=== PATIENT | female | born 1955 | race Caucasian/White ===

== ENCOUNTER 2019-01-29 09:56 | Inpatient (IN) | payer BC ==
--- NOTE | 2019-01-23 15:28 | HPE ---
DATE OF ADMISSION: 01/29/2019 CHIEF COMPLAINT: Right knee pain. HISTORY OF PRESENT ILLNESS: This is a pleasant, 63-year-old female with progressively worsening right knee pain and stiffness. She has failed to improve with conservative treatment. She has elected for surgery for her continued symptoms. She has pain with weightbearing activities and activities of daily living. X-rays of her knee are notable for advanced osteoarthritis of the right knee joint. She has consented for a right total knee arthroplasty by Dr. Lang Cardoza. Medical optimization was performed by Dr. Emerson. ALLERGIES: LATEX and OXYCONTIN. CURRENT MEDICATIONS: - Lisinopril 10 mg - Centrum Silver - vitamin D3 50 mcg - vitamin B12 1000 mcg - Viactiv calcium 650 mg - Tylenol 8-hour 650 mg as needed up to three times a day - EpiPen as needed - sodium sulfacetamide face wash PAST MEDICAL HISTORY: Includes high blood pressure. PAST SURGICAL HISTORY: Includes tonsillectomy, partial hysterectomy, right knee arthroscopy, left foot bunion, bladder sling, plantar fasciectomy in the right foot, left eye surgery, left shoulder rotator cuff repair, left knee arthroscopy, right shoulder arthroscopy. 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 FAMILY HISTORY: Noncontributory. REVIEW OF SYSTEMS: This patient denies chest pain, heart palpitations, cough, wheezing, difficulty breathing and shortness of breath. She denies abdominal pain, nausea, vomiting, diarrhea or constipation. She denies recent upper respiratory infection or urinary tract infection symptoms. PHYSICAL EXAMINATION: General: She is well-nourished, well-developed, in no acute distress, alert female patient. She walks with a moderate limp favoring the right lower extremity. She is not using assistive devices. Vital signs: She was 66 inches tall, weighed 205.6 pounds with a temperature of 98.6, blood pressure 131/87, pulse of 72, and respirations of 18. Neck was supple without adenopathy or jugular venous distension. Lungs were clear to auscultation without rales or wheeze. Heart: Regular rate and rhythm. Abdomen: Bowel sounds were present. Extremities: Examination of the knee revealed intact skin. She had decreased range of motion due to pain and stiffness. The limb is neurovascularly intact. LABORATORY DATA: EKG showed sinus rhythm at 62 beats per minute. Chest x-ray showed no acute cardiopulmonary disease findings. CBC was within normal limits. BUN 11, creatinine 0.7. Sodium 140, potassium 4.6. The remaining labs were pending. IMPRESSION: Symptomatic osteoarthritis of the right knee joint. PLAN: Consented for a right total knee arthroplasty with Dr. Lang Cardoza.
[~2019-01-29] VITALS: Ht 167.6 cm; Wt 91.6 kg
[~2019-01-29 09:56] MED LIST: ACET-907 PO; ACETAMINOPHEN 500 MG TAB PO ONE; CHOL100029 PO; CVS2500C PO; LIDOCAINE 1% MDV 20ML VIAL SQ PRN; LISI10TA4 PO; LR 1,000 ML IV SCH; MULTCAP PO; VIAC1CHW PO; [UNRECOGNIZED DRUG - OTHER] EX; ceFAZolin SOD 2 GM in IV 1 EA IV ONE
[2019-01-29] MEDS ORDERED: ONDANSETRON 4MG/2ML VIAL (J2405) As Ordered ONE (12:40)
[2019-01-29] MEDS ORDERED: dexameTHASONE 4 MG/ML 1ML VIAL (J1100) As Ordered ONE (12:40)
[2019-01-29] MEDS ORDERED: LIDOCAINE 2% INJ 100 MG/5 ML SDV (FOR ANES.) As Ordered ONE (12:40)
[2019-01-29] MEDS ORDERED: propofoL 200 MG/20 ML VIAL As Ordered ONE ×2 (12:40→15:04)
[2019-01-29] MEDS ORDERED: MIDAZOLAM INJ 2 MG/2 ML VIAL (J2250) As Ordered ONE ×2 (12:41→13:02)
[2019-01-29] MEDS ORDERED: BUPIVACAINE HCL 0.25% 30 ML VIAL As Ordered ONE ×2 (13:02→13:13)
[2019-01-29] MEDS ORDERED: fentaNYL 100 MCG/2 ML INJECTION (J3010) As Ordered ONE ×2 (13:02→14:48)
[2019-01-29] MEDS ORDERED: TRANEXAMIC ACID 100 MG/ML 10ML VIAL As Ordered ONE (13:12)
[2019-01-29] MEDS ORDERED: BUPIVACAINE LIPOSOME/PF 1.3% 20ML VIAL (13.3MG/ML)(EXPAREL)(C9290 PER1MG) As Ordered ONE (13:13)
[2019-01-29] MEDS ORDERED: EPINEPHrine INJ 1 MG/ML 1ML VIAL As Ordered ONE (13:13)
[2019-01-29] MEDS ORDERED: ceFAZolin 1GM INJ (J0690 PER 500MG) As Ordered ONE (13:13)
[2019-01-29] MEDS ORDERED: propofoL 500 MG/50 ML VIAL As Ordered ONE (15:03)
[2019-01-29] MEDS ORDERED: LABETALOL HCL 100 MG/20 ML VIAL As Ordered ONE (15:08)
[2019-01-29] MEDS ORDERED: ONDANSETRON 4MG/2ML VIAL (J2405) IV PRN (16:15)
[2019-01-29] MEDS ORDERED: LR 1,000 ML IV SCH ×2 (16:15→16:45)
[2019-01-29] MEDS ORDERED: fentaNYL 100 MCG/2 ML INJECTION (J3010) IV PRN (16:15)
[2019-01-29] MEDS ORDERED: METOCLOPRAMIDE INJ 10MG/2ML VIAL (J2765) IV PRN (16:15)
[2019-01-29] MEDS ORDERED: HYDROmorphone HCL 2 MG/ML 1ML VIAL (J1170) IV PRN (16:30)
--- NOTE | 2019-01-29 16:34 | HPEPDOC ---
[facility] Medical History & Physical Date of Admission Jan 29, 2019 Date of Service: Jan 29, 2019 Primary Care Physician: Vargas Lopez Attending Physician: HEIDE TYSON MD History and Physical CHIEF COMPLAINT: S/P R Total Knee Replacement HISTORY OF PRESENT ILLNESS: Patient is a 63-year old, female, past medical history of HTN, who had a R total knee replacement performed on 01/29/[address] Lang Cardoza. Prior to her operation today, patient reports being in her usual state of health. PAST MEDICAL HISTORY: Hypertension, controlled PAST SURGICAL HISTORY: Tonsillectomy Partial Hysterectomy R Knee Arthroscopy Left foot Bunionectomy Right foot Fasciectomy Left Shoulder Rotator Cuff Repair Right Shoulder Rotator Cuff Repair Bladder Sling L Eye Surgery Total R Knee Replacement SOCIAL HISTORY: Marital status: Resides in: [place], with Employment: Works as an juvenile correctional officer Tobacco use: Patient denies any tobacco use history ETOH: Patient reports occasional alcohol use, she denies any recent intoxication Illicit drug use: Patient denies any illicit drug use, including marijuana Other relevant social factors: Patient does utilize corrective lenses FAMILY HISTORY: Father: , 82, [place] Mother: , 97, Melanoma, Ovarian carcinoma dx at 92 ALLERGIES: Latex-rash OxyContin-GI upset Bee-anaphylaxis REVIEW OF SYSTEMS: CONSTITUTIONAL: Patient denies any preceding fevers, chills, night sweats, generalized fatigue or changes in weight HEENT: Denies any headaches, changes in vision, changes in hearing, ringing in the ears, difficulty swallowing or oral aphthous ulcers. CARDIOVASCULAR: Denies any chest pain, palpitations or an appropriate tachycardia. RESPIRATORY: Denies difficulty breathing, no orthopnea or paroxysmal nocturnal dyspnea. Patient is able to lie flat without difficulty. No recent cough or wheeze. No history of ROSA. GASTROINTESTINAL: Denies recent reflux, abdominal pain, constipation or diarrhea. No recent nausea or vomiting GENITOURINARY: Patient denies any difficulty urinating including urinary frequency, hesitancy, urgency SKIN: Denies any recent evolving skin lesions or rashes. MUSCULOSKELETAL: Reports preceding right knee pain requiring [id number] Tylenol. Denies any other joint or muscle pain NEUROLOGICAL: No history of neurologic deficits, TIA, numbness tingling or weakness PSYCHIATRIC: Denies any history of clinically significant depression or anxiety HEMATOLOGIC/LYMPHATIC: Patient denies any history of easy bruising or abnormal bleeding HOME MEDICATIONS: Please see below. PHYSICAL EXAMINATION: VITAL SIGNS: Temperature 97.4 F, pulse 79, respiratory rate 18, blood pressure 137/81, pulse oximetry 96% on room air. GENERAL APPEARANCE: Patient was interviewed and examined in the PACU. Patient was alert and oriented, found to be resting comfortably in her hospital bed. She was able to answer questions appropriately and actively participate in her care. HEENT: Normocephalic, atraumatic, EOMI, good oral hygiene, mucosa pink and moist CARDIOVASCULAR: Regular rate and rhythm, normal S1 and S2 LUNGS: Clear to auscultation bilaterally, no wheezing rale or rhonci ABDOMEN: Soft, nontender, nondistended MUSCULOSKELETAL: R knee covered in post-op bandages. EXTREMITIES: No L lower extremity edema. Bilateral radial pulses and L posterior tibial pulse 2+ NEUROLOGICAL: Alert and oriented to person place and time, no focal neurologic deficits, appropriate and conversant LABORATORY DATA: See below. IMAGING: Right knee x-ray (01/29/19): Status post right total knee replacement ASSESSMENT: Patient is a 63-year-old female, past medical history significant for hypertension, who is status postop day #1 following an uncomplicated right total knee replacement by Dr. Cardoza. Patient tolerated the procedure well without any adverse sequelae. PLAN: #Postop right total knee replacement. Pain control, PT/OT and DVT prophylaxis as per orthopedics #Hypertension Continue patient on home lisinopril 10 mg starting tomorrow DVT Prophylaxis: Per orthopedics CODE STATUS: Full code Vital Signs Vital Signs Date Time Temp Pulse Resp B/P (MAP) Pulse Ox O2 Delivery O2 Flow Rate FiO2 01/29/19 14:00 74 20 173/84 (113) 100 3 01/29/19 10:23 99 Home Medications Scheduled Acetaminophen (Tylenol) 325 Mg Tablet, 975 MG PO TID Calcium Carb/Vitamin D3/Vit K1 (Viactiv 650 mg-12.5 Mcg Chew) 1 Each Tab.chew, 1 EACH PO BID Cyanocobalamin (Vitamin B-12) (Vitamin B12) 2,500 Mcg Tab.chew, Unknown Dose PO DAILY Lisinopril (Lisinopril) 10 Mg Tablet, 10 MG PO DAILY Multivitamin (Multivitamins) 1 Each Capsule, 1 CAP PO DAILY Sulfacetamide Sodium (Sodium Sulfacetamide) 355 Ml Clnsr.gel, 10 % EX DAILY Vitamin D (Vitamin D3) 1,000 Unit Tablet, 2,000 UNITS PO DAILY Allergies Coded Allergies: bee venom protein (honey bee) (Verified Allergy, Severe, anaphylaxis, 01/21/19) latex (Verified Allergy, Intermediate, rash, 01/21/19) oxycodone (Verified Adverse Reaction, Intermediate, vomiting, 01/29/19) A-FIB/CHADSVASC A-FIB History Current/History of A-Fib/PAF?: No GME ATTESTATION GME ATTESTATION My faculty preceptor for this patient encounter was physically present during the encounter and was fully available. All aspects of the patient interview, examination, medical decision making process, and medical care plan development were reviewed and approved by the faculty preceptor. The faculty preceptor is aware and concurs with the plan as stated in the body of this note and will attest to such by his/her cosignature. ATTENDING NOTE I, Heide Tyson, have independently examined this patient and performed my own physical exam, as well as reviewed the documentation and edited where necessary. I have discussed in detail with the resident / student the findings and plan of treatment as documented by the resident / student and edited their note. I agree with their findings and treatment plan and have edited their documentation. I will continue to follow the patient during this hospital stay. AUGUST RODRIGUEZ DO Jan 29, 2019 16:34 HEIDE TYSON MD Jan 29, 2019 17:34
--- NOTE | 2019-01-29 16:39 | REP ---
Right knee AP and lateral views, post operative study: There is a total knee arthroplasty. The components are tightly applied and in satisfactory positions alignment. There is intra-articular air as a postsurgical change. There are skin alicia. Electronically Signed by Mark Coreas MD 01/29/2019 04:31 P
[2019-01-29] MEDS ORDERED: FLEET ENEMA PR PRN (16:45)
[2019-01-29] MEDS ORDERED: ACETAMINOPHEN TAB 650MG DOSE (2X325MG) PO PRN (16:45)
[2019-01-29] MEDS ORDERED: NORCO, ANEXSIA 5/325MG TABLET (HYDROcodone/ACETAMINOPHEN) As Ordered ONE (16:54)
[2019-01-29] MEDS ORDERED: NORCO, ANEXSIA 5/325MG TABLET (HYDROcodone/ACETAMINOPHEN) PO PRN (17:00)
[2019-01-29 17:30] VITALS: BP 150/70
[2019-01-29 18:00] VITALS: BP 157/89
[2019-01-29 19:00] VITALS: BP 152/85
[2019-01-29] MEDS: ceFAZolin SOD 2 GM in IV 1 EA IV SCH (19:58)
[2019-01-29 20:00] VITALS: BP 155/88
[2019-01-29] MEDS: HYDROmorphone HCL 2 MG/ML 1ML VIAL (J1170) IV PRN (20:06)
[2019-01-29 21:00] VITALS: BP 150/87
[2019-01-29 22:00] VITALS: BP 148/86
[2019-01-30 02:00] VITALS: BP 140/84
[2019-01-30] MEDS: ceFAZolin SOD 2 GM in IV 1 EA IV SCH ×2 (03:03→13:33)
[2019-01-30] MEDS: HYDROmorphone HCL 2 MG/ML 1ML VIAL (J1170) IV PRN (03:03)
[2019-01-30 06:00] VITALS: BP 138/76
[2019-01-30 06:00] LABS: HEMATOCRIT 32.9 % (36.0-47.0); HEMOGLOBIN 11.1 g/dl (12.0-15.5); MEAN CORPUSCULAR HEMOGLOBIN 32.1 pg (27.0-33.0); MEAN CORPUSCULAR HGB CONC 33.7 g/dl (32.0-36.5); MEAN CORPUSCULAR VOLUME 95.1 fl (80.0-96.0); PLATELET COUNT, AUTOMATED 192 10^3/uL (150-450); RED BLOOD COUNT 3.46 10^6/uL (4.00-5.40)
[2019-01-30 06:21] LABS: INR 1.21
[2019-01-30 06:24] LABS: BLOOD UREA NITROGEN 14 MG/DL (7-18); CALCIUM LEVEL 8.4 MG/DL (8.8-10.2); CARBON DIOXIDE LEVEL 28 MEQ/L (21-32); CHLORIDE LEVEL 106 MEQ/L (98-107); CREATININE FOR GFR 0.67 MG/DL (0.55-1.30); GLOMERULAR FILTRATION RATE > 60.0 (>45); GLUCOSE, FASTING 152 MG/DL (70-100); SODIUM LEVEL 139 MEQ/L (136-145)
[2019-01-30] MEDS ORDERED: HYDR-3713 PO (06:56)
[2019-01-30] MEDS ORDERED: XARE10TA PO ×2 (06:56→07:48)
[2019-01-30] MEDS: MOM 30ML SUSPENSION UDC PO SCH (08:30)
[2019-01-30] MEDS: MIRALAX *UNIT DOSE* 17GM PACKET PO SCH (08:30)
[2019-01-30] MEDS: lisinopriL 10 MG TAB PO SCH (08:34)
[2019-01-30] MEDS: SENOKOT S TAB PO SCH ×2 (08:34→20:47)
[2019-01-30] MEDS: VITAMIN D 1,000 INTERNATIONAL UNITS TABLET PO SCH (08:34)
[2019-01-30] MEDS: RIVAROXABAN 10 MG TAB (XARELTO) PO SCH (08:34)
[2019-01-30] MEDS: NORCO, ANEXSIA 5/325MG TABLET (HYDROcodone/ACETAMINOPHEN) PO PRN ×3 (08:35→20:47)
--- NOTE | 2019-01-30 09:45 | IPNPDOC ---
Date Seen The patient was seen on 01/30/19. Progress Note SUBJECTIVE: Patient was interviewed and examined in her hospital this morning. Patient was found to be sitting upright in bed he, eating breakfast in no acute distress. Patient presented in good spirits. She states that her pain is being adequately controlled per orthopedics. She has been up to the bathroom though she denies having a bowel movement since surgery. She has continued to use incentive spirometry to prevent postoperative atelectasis. She denies headache, changes in vision, chest pain, shortness of breath, nausea, vomiting, abdominal pain. Patient states that she is unable to be discharged home today and she will not have anyone at home to help her perform ADLs. Patient in agreement with discharge tomorrow morning. OBJECTIVE PHYSICAL EXAMINATION: VITAL SIGNS: Please see below. GENERAL APPEARANCE: Patient was interviewed and examined in the inner hospital room. Patient was alert and oriented to person place and time. She was able to answer questions appropriately and actively participate in her care. HEENT: Normocephalic, atraumatic, EOMI, good oral hygiene, mucosa pink and moist CARDIOVASCULAR: Regular rate and rhythm, normal S1 and S2 LUNGS: Clear to auscultation bilaterally, no wheezing rale or rhonci ABDOMEN: Soft, nontender, nondistended MUSCULOSKELETAL: R knee covered in post-op bandages. EXTREMITIES: No L lower extremity edema. Bilateral radial pulses and L posterior tibial pulse 2+ NEUROLOGICAL: Alert and oriented to person place and time, no focal neurologic deficits, appropriate and conversant LABORATORY DATA Please see below. IMAGING STUDIES Knee x-ray (01/30/19): Postoperative study, total knee arthroplasty. Components are tightly applied satisfactory position and alignment. Intra-articular air has a postsurgical change. There are skin alicia. ASSESSMENT: Patient is a 63-year-old female, past medical history significant for hypertension, who is status postop day #1 following an uncomplicated right total knee replacement by Dr. Cardoza. Patient tolerated the procedure well without any adverse sequelae. PROBLEMS: #Postop right total knee replacement. Pain control, PT/OT and DVT prophylaxis as per orthopedics Patient states that her pain is currently adequately controlled She has been able to sit in her chair and ambulate to the bathroom. #Hypertension Overnight patient's blood pressure has remained [id number]. Patient to restart her lisinopril 10 mg morning. Continue to monitor patient's blood pressure measurements the hospital. DVT Prophylaxis: Per orthopedics CODE STATUS: Full code DISPOSITION: Anticipate discharge tomorrow am. DVT Prophylaxis: TEDS and Sequentials per Orthopedics VS, I&O, 24H, Fishbone Vital Signs/I&O Vital Signs Date Time Temp Pulse Resp B/P (MAP) Pulse Ox O2 Delivery O2 Flow Rate FiO2 01/30/19 08:35 10 01/30/19 08:34 138/76 01/30/19 06:00 98.2 74 98 01/29/19 14:00 3 I&O- Last 24 Hours up to 6 AM 01/30/19 05:59 Intake Total 1970 ml Output Total 1220 ml Balance 750 ml Laboratory Data 24H LABS Laboratory Tests 2 01/30/19 05:40: Nucleated Red Blood Cells % (auto) 0.0, Prothrombin Time 15.0H, Prothromb Time International Ratio 1.21, Anion Gap 5L, Glomerular Filtration Rate > 60.0, Blood Urea Nitrogen 14, Creatinine 0.67, Sodium Level 139, Potassium Level 4.0, Chloride Level 106, Carbon Dioxide Level 28, Calcium Level 8.4L CBC/BMP Laboratory Tests 01/30/19 05:40 Red Blood Count 3.46 L, Mean Corpuscular Volume 95.1, Mean Corpuscular Hemoglobin 32.1, Mean Corpuscular Hemoglobin Concent 33.7, Red Cell Distribution Width 12.4, Calcium Level 8.4 L GME ATTESTATION GME ATTESTATION My faculty preceptor for this patient encounter was physically present during the encounter and was fully available. All aspects of the patient interview, examination, medical decision making process, and medical care plan development were reviewed and approved by the faculty preceptor. The faculty preceptor is aware and concurs with the plan as stated in the body of this note and will attest to such by his/her cosignature. ATTENDING NOTE I, Sharla Posada, have independently examined this patient and performed my own physical exam, as well as reviewed the documentation and edited where necessary. I have discussed in detail with the resident / student the findings and plan of treatment as documented by the resident / student and edited their note. I agree with their findings and treatment plan and have edited their documentation. I will continue to follow the patient during this hospital stay. AUGUST RODRIGUEZ DO Jan 30, 2019 09:45 SHARLA POSADA MD Jan 30, 2019 14:16
--- NOTE | 2019-01-30 11:34 | RO ---
DATE OF PROCEDURE: 01/29/2019 PREOPERATIVE DIAGNOSIS: Right knee degenerative arthritis. POSTOPERATIVE DIAGNOSIS: Right knee degenerative arthritis. PROCEDURE: Right total knee arthroplasty using a size 5 cruciate retaining femoral component and a size 4 tibial try with a 6 mm rotating platform polyethylene insert and a 32 mm polyethylene button. All of the components were cemented. The prosthesis was an ATTUNE knee made Chad-Chad/DePuy. SURGEON: Jillian Cardoza MD SWITCH TECHNICIAN: Mr. Luiz Lui PA-C ANESTHESIA: Spinal with a right femoral nerve block. COMPLICATIONS: None. SPECIMENS: Joint surface. ESTIMATED BLOOD LOSS: 20 mL. COMPLICATIONS: None. PROCEDURE: Antibiotics were given intravenously preoperatively. A successful right femoral nerve block, then spinal anesthetic was induced. The tourniquet was placed on the right upper thigh and not inflated. The right lower extremity was then carefully prepped and draped in the usual sterile fashion, elevated, and after appropriate time out, the tourniquet was inflated. A longitudinal incision was made for a medial parapatellar approach to the knee. Bovie cautery was used to coagulate the crossing vessels. Subperiosteal dissection around the proximal, medial and lateral tibial plateau was performed. The patella was everted, the knee flexed, anterior cruciate ligament (ACL) debrided. Drill placed down the center of femoral canal, followed by the intramedullary bulmaro and distal femoral cutting jig set at 9 mm resection level at 5 degree valgus cut at for a right knee. Block was pinned into position. The distal femoral cut was then performed. AP sizing jig measured for a size 5, 3 degrees of external rotation were dialed in, the pins placed, and the four-in-one block applied, anterior, posterior and chamfer cuts performed. The sulcus jig was then placed and the sulcus performed. We then exposed the proximal tibia, used the extramedullary cutting jig to estimate being parallel to the mechanical axis of the tibia, the block was pinned in position, referencing off the medial tibial condyle at 4 mm resection level. The block was pinned in position, secondary check of the extramedullary bulmaro confirmed we appeared to be parallel to the mechanical axis. Proximal tibial osteotomy was then performed. The lamina services tech was then placed medially and we performed a completion lateral meniscectomy and debridement of the posterolateral osteophytes. We then placed the lamina services tech laterally and performed a completion medial meniscectomy and debridement of the posteromedial osteophytes. Spacer block, 6 mm, fit the best with symmetry between the flexion and extension gaps with good stability to varus valgus stress testing. We then exposed the proximal tibia, sized for a 4 tray which was pinned into position followed by the reamer and broach, trial placed, then the femur was applied. Then we brought the knee into extension and everted the patella, performed patellar osteotomy, drilled the lug holes for a 32 button. Trial was placed and patellofemoral tracking was anatomic. We drilled the lug holes for the femur, then removed all the trial components, and placed Exparel in the subperiosteal tissues around the distal femur and the proximal tibia. Then I copiously pulsatile lavage irrigated out the entire knee joint in preparation for cementing as my staff physical therapy assistant Mr. Luiz Lui mixed the cement on the back table. He was also critical to the success of this difficult surgery by helping with appropriate soft tissue retraction, helped to manipulate the knee as needed, helped to mix the cement, helped to close the wound and helped to prepare the patient, amongst many other tasks to allow me to perform the operation safely and efficiently. We then cemented the tibial tray and removed excess cement, placed the polyethylene, cemented the femoral component and removed excess cement, then brought the knee out in extension, cemented the patellar button, held it with a clamp with the knee fully extended until the cement hardened. As we were awaiting this, we copiously pulsatile lavage irrigated out the knee joint, and then placed tranexamic acid in the knee. We then closed the apex of the arthrotomy with two #1 PDS sutures, the medial parapatellar area was closed with #1 PDS suture, then we closed the capsule, and double arm #1 running STRATAFIX. The tourniquet was then released, then irrigated again and closed the deep subdermal tissues with interrupted #2-0 PDS sutures. Skin was closed with alicia, covered by Optifoam and dry sterile bulky dressing. Then the patient was transferred to the recovery room in stable condition. There were no intraoperative complications.
[2019-01-30 16:10] VITALS: BP 139/75
[2019-01-30 22:00] VITALS: BP 150/94
[2019-01-31] MEDS: NORCO, ANEXSIA 5/325MG TABLET (HYDROcodone/ACETAMINOPHEN) PO PRN ×3 (01:05→09:14)
[2019-01-31 06:00] VITALS: BP 160/91
[2019-01-31 06:35] LABS: HEMATOCRIT 32.1 % (36.0-47.0); HEMOGLOBIN 10.4 g/dl (12.0-15.5); MEAN CORPUSCULAR HGB CONC 32.4 g/dl (32.0-36.5); MEAN CORPUSCULAR VOLUME 95.5 fl (80.0-96.0); PLATELET COUNT, AUTOMATED 172 10^3/uL (150-450); RED BLOOD COUNT 3.36 10^6/uL (4.00-5.40); WHITE BLOOD COUNT 8.8 10^3/uL (4.0-10.0)
[2019-01-31 06:54] LABS: BLOOD UREA NITROGEN 12 MG/DL (7-18); CALCIUM LEVEL 8.4 MG/DL (8.8-10.2); CARBON DIOXIDE LEVEL 29 MEQ/L (21-32); CHLORIDE LEVEL 107 MEQ/L (98-107); CREATININE FOR GFR 0.64 MG/DL (0.55-1.30); GLOMERULAR FILTRATION RATE > 60.0 (>45); GLUCOSE, FASTING 143 MG/DL (70-100); POTASSIUM SERUM 3.8 MEQ/L (3.5-5.1); SODIUM LEVEL 141 MEQ/L (136-145)
[2019-01-31 08:54] VITALS: BP 160/91
[2019-01-31] MEDS: SENOKOT S TAB PO SCH (08:54)
[2019-01-31] MEDS: lisinopriL 10 MG TAB PO SCH (08:54)
[2019-01-31] MEDS: MIRALAX *UNIT DOSE* 17GM PACKET PO SCH (08:54)
[2019-01-31] MEDS: MOM 30ML SUSPENSION UDC PO SCH (08:54)
[2019-01-31] MEDS: RIVAROXABAN 10 MG TAB (XARELTO) PO SCH (08:54)
[2019-01-31] MEDS: VITAMIN D 1,000 INTERNATIONAL UNITS TABLET PO SCH (08:54)
--- NOTE | 2019-01-31 12:12 | IPNPDOC ---
Date Seen The patient was seen on 01/31/19. Progress Note SUBJECTIVE: Patient was seen and examined this morning. She currently has no complaints. There have been no adverse events reported overnight. Patient is to be discharged today OBJECTIVE PHYSICAL EXAMINATION: VITAL SIGNS: Please see below. GENERAL: Patient is awake, alert and oriented. does not appear to be in acute distress. Lying comfortably in bed HEENT: Atraumatic, normocephalic. Eyes are nonicteric. Trachea is midline. Mucous membranes are pink and moist. No conjunctival pallor CARDIOVASCULAR:. Normal S1, S2, regular rate and rhythm. No clicks, rubs or murmurs. Capillary refills less than 2 seconds. RESPIRATORY:. Clear vesicular breath sounds bilaterally with good respiratory effort. There is no wheezes, rhonchi or rales. ABDOMINAL: Soft, nondistended, nontender to palpation in all 4 quadrants. No rebound tenderness or guarding. No hernias or bruising EXTREMITIES: No edema, 2+ posterior tibial pulses 2+ radial pulses bilaterally. No clubbing or cyanosis of the nailbeds NEUROLOGICAL:. No focal neurological deficits PSYCHOLOGICAL: Mood and affect appear appropriate LABORATORY DATA, IMAGING STUDIES, MICROBIOLOGY: Please see below. DVT prophylaxis ordered?: Xarelto 10 mg ASSESSMENT AND PLAN: Patient is 62-year-old female with past medical history of hypertension and is status post day 1 following uncomplicated right total knee replacement. Patient has tolerated procedure well and is currently pending discharge PROBLEMS: 1. Postop day 2, total right knee replacement -Pain control and DVT prophylaxis, being managed by orthopedic surgery -Patient has worked with physical therapy and occupational therapy -Patient is planned to be discharged today 2., Hypertension -Patient did well controlled on her home medications. DISPOSITION: Patient is done well overnight is currently pending discharge per orthopedic surgery. She is to continue all of her current home medications upon discharge. Ongoing pain management and DVT prophylaxis at discharge is under management by orthopedic surgery. VS, I&O, 24H, Fishbone Vital Signs/I&O Vital Signs Date Time Temp Pulse Resp B/P (MAP) Pulse Ox O2 Delivery O2 Flow Rate FiO2 01/31/19 09:59 17 01/31/19 08:54 160/91 01/31/19 06:00 98.4 75 95 01/29/19 14:00 3 I&O- Last 24 Hours up to 6 AM 01/31/19 06:00 Intake Total 2040 ml Output Total 2150 ml Balance -110 ml Laboratory Data 24H LABS Laboratory Tests 2 01/31/19 06:20: Nucleated Red Blood Cells % (auto) 0.0, Anion Gap 5L, Glomerular Filtration Rate > 60.0, Blood Urea Nitrogen 12, Creatinine 0.64, Sodium Level 141, Potassium Level 3.8, Chloride Level 107, Carbon Dioxide Level 29, Calcium Level 8.4L CBC/BMP Laboratory Tests 01/31/19 06:20 Red Blood Count 3.36 L, Mean Corpuscular Volume 95.5, Mean Corpuscular Hemoglobin 31.0, Mean Corpuscular Hemoglobin Concent 32.4, Red Cell Distribution Width 12.7, Calcium Level 8.4 L GME ATTESTATION GME ATTESTATION My faculty preceptor for this patient encounter was physically present during the encounter and was fully available. All aspects of the patient interview, examination, medical decision making process, and medical care plan development were reviewed and approved by the faculty preceptor. The faculty preceptor is aware and concurs with the plan as stated in the body of this note and will attest to such by his/her cosignature. ATTENDING NOTE I, Heide Posada, have independently examined this patient and performed my own physical exam, as well as reviewed the documentation and edited where necessary. I have discussed in detail with the resident / student the findings and plan of treatment as documented by the resident / student and edited their note. I agree with their findings and treatment plan and have edited their documentation. I will continue to follow the patient during this hospital stay. PACHECO MOORE DO Jan 31, 2019 11:20 HEIDE POSADA MD Jan 31, 2019 15:23
--- NOTE | 2019-02-01 17:43 | DSES ---
DATE OF ADMISSION: 01/29/2019 DATE OF DISCHARGE: 01/31/2019 ATTENDING PHYSICIAN: Dr. Lang Cardoza. ADMISSION DIAGNOSIS: Osteoarthritis right knee. OTHER DIAGNOSIS: Hypertension. DISCHARGE DIAGNOSIS: Osteoarthritis right knee status post right total knee arthroplasty. OPERATION PERFORMED: Right total knee arthroplasty. HISTORY: A 63-year-old female patient with progressively worsening right knee pain and stiffness. She failed to improve with conservative management. She was admitted for elective knee replacement on the right side. HOSPITAL COURSE: The patient was admitted on day of surgery and underwent a right total knee arthroplasty, which was uneventful. She did well in the postoperative period and her hospital course was without complications. She was up with physical therapy per their protocol and her pain was controlled. On day of discharge, she was doing well, weightbearing as tolerated on her right lower extremity. She will move her right knee to prevent stiffness. She will use thromboembolitic deterrent (SWEETIE) stockings for 30 days postoperative for deep venous thrombosis (DVT) prophylaxis. She will also use Xarelto 10 mg per the protocol for DVT prophylaxis. She will follow up in our office in 10-14 days for surgical followup. She was given instructions to include, but limited to, wound monitoring, activity limitations. She will resume her preoperative medications and diet. She will use oral pain medications for pain control.
== END 2019-01-31 12:45 | disposition home or self-care (01) | DRG 302 ==
LOC: M OR 09:56 → M MS5PR 17:20
PROVIDERS: ADMIT Orthopaedic Surgery; ATTEND Orthopaedic Surgery
PROC: 0SRC0J9 Replacement of Right Knee Joint with Synthetic Substitute, Cemented, Open Approach (ICD-10-PCS; principal; 2019-01-29 14:45)
DX: M17.11 Unilateral primary osteoarthritis, right knee (principal); I10 Essential (primary) hypertension; R26.89 Other abnormalities of gait and mobility; E78.5 Hyperlipidemia, unspecified; Z79.899 Other long term (current) drug therapy; Z91.030 Bee allergy status; Z91.040 Latex allergy status; Z88.5 Allergy status to narcotic agent

== ENCOUNTER → 2022-11-22 | Outpatient (CLI) | payer BC, MEDICARE ==
[~2022-11-22] MED LIST changes: -ACETAMINOPHEN 500 MG TAB PO ONE; +HYDR-3713 PO; -LIDOCAINE 1% MDV 20ML VIAL SQ PRN; +LISI10TA22 PO; -LISI10TA4 PO; -LR 1,000 ML IV SCH; +METHACHOLINE KIT INH ONE; +XARE10TA PO; -ceFAZolin SOD 2 GM in IV 1 EA IV ONE
== END ==
LOC: M CARPUL 14:27
PROVIDERS: ATTEND Nurse Practitioner Adult Health
DX: R06.02 Shortness of breath (principal)
CPT/HCPCS: 94070; 95070; J7674